=== PATIENT | female | born 1950 | race African-American/Black ===

== ENCOUNTER 2016-09-11 07:50 | Outpatient (CLI) | payer OTHER ==
[2016-09-11 08:45] LABS: #Basophils 0.1 thou/uL (0.0-0.2); #Eosinphils 0.3 thou/uL (0.0-0.7); #Lymphocytes 1.5 thou/uL (1.20-3.40); #Monocytes 0.5 thou/uL (0.11-0.59); #Neutrophils 3.5 thou/uL (1.40-6.50); %Basophils 1.7 % (0.0-1.0); %Eosinophils 5.7 % (0.0-10.0); %Lymphocytes 25.8 % (21.0-51.0); %Monocytes 7.7 % (0.0-10.0); Hematocrit 40.9 % (36.0-47.0); Mean Platelet Volume 8.2 fL (7.4-10.4); White Blood Cell (WBC) Count 5.8 thou/uL (4.8-10.8)
[2016-09-11 08:55] LABS: Bilirubin Negative (Negative); Blood, Urine Negative (Negative); Glucose, Urine (Dipstick) Negative (Negative); Ketone, Urine Negative (Negative); Nitrite Negative (Negative); Protein, Urine (Dipstick) Negative (Neg-Trace); Urobilinogen 0.2 mg/dL (0.2-1.0)
[2016-09-11 08:56] LABS: Hemoglobin A1c 5.2 % (4.0-6.0)
[2016-09-11 09:01] LABS: ALT (SGPT) 13 U/L (0-55); AST (SGOT) 20 U/L (5-34); Alkaline Phosphatase 76 U/L (40-150); Anion Gap 13 mmol/L (10-20); BUN (Urea Nitrogen) 43 mg/dL (9.8-20.1); Bilirubin, Total 0.3 mg/dL (0.2-1.2); Calc. Creatinine Clearance 0 mL/min (70-130); Calcium 9.6 mg/dL (7.8-10.44); Carbon Dioxide 26 mmol/L (23-31); Chloride 105 mmol/L (98-107); Estimated GFR-MDRD 40; Globulin 3.5 g/dL (2.4-3.5); LDL Cholesterol, Calculated 197 mg/dL; Protein, Total 7.7 g/dL (5.8-8.1)
== END 2016-09-11 07:51 ==
LOC: NAVSJIPCSP 07:50
PROVIDERS: ATTEND Internal Medicine
DX: E78.2 Mixed hyperlipidemia (principal); I65.22 Occlusion and stenosis of left carotid artery; I10 Essential (primary) hypertension; Z96.651 Presence of right artificial knee joint
CPT/HCPCS: 80053; 80061; 81003; 83036; 84443; 85025

== ENCOUNTER 2017-03-11 08:24 | Outpatient (CLI) | payer MEDICARE ==
[2017-03-11 12:32] LABS: #Eosinphils 0.2 thou/uL (0.0-0.7); #Lymphocytes 1.2 thou/uL (1.20-3.40); #Monocytes 0.3 thou/uL (0.11-0.59); #Neutrophils 3.6 thou/uL (1.40-6.50); %Basophils 0.6 % (0.0-1.0); %Eosinophils 4.5 % (0.0-10.0); %Lymphocytes 22.6 % (21.0-51.0); %Monocytes 5.4 % (0.0-10.0); %Neutrophils 66.9 % (42.0-75.0); Hemoglobin 10.6 g/dL (12.0-16.0); Mean Corpuscular HGB CONC 30.4 g/dL (32.0-36.0); Mean Corpuscular Volume 85.6 fl (81.0-99.0); Mean Platelet Volume 6.6 fL (7.4-10.4); Platelet Count 188 thou/uL (130-400); RBC Distribution Width 14.1 % (11.5-14.5); Red Blood Cell (RBC) Count 4.08 mill/uL (4.20-5.40); White Blood Cell (WBC) Count 5.3 thou/uL (4.8-10.8)
[2017-03-11 12:55] LABS: ALT (SGPT) 13 U/L (8-55); AST (SGOT) 20 U/L (5-34); Albumin 4.1 g/dL (3.4-4.8); Alkaline Phosphatase 66 U/L (40-150); Anion Gap 17 mmol/L (10-20); BUN (Urea Nitrogen) 29 mg/dL (9.8-20.1); Bilirubin, Total 0.2 mg/dL (0.2-1.2); Calc. Creatinine Clearance 0 mL/min (70-130); Calcium 9.1 mg/dL (7.8-10.44); Carbon Dioxide 26 mmol/L (23-31); Cardiac Risk 4.1 (Less than 4.5); Chloride 103 mmol/L (98-107); Cholesterol 190 mg/dl (< 200 Desired); Estimated GFR-MDRD 43; Globulin 2.5 g/dL (2.4-3.5); Glucose 128 mg/dL (80-115); HDL Cholesterol 46 mg/dL (>60 Neg Risk); LDL Cholesterol, Calculated 130 mg/dL; Potassium 3.8 mmol/L (3.5-5.1); Protein, Total 6.6 g/dL (6.0-8.3); Sodium 142 mmol/L (136-145); Triglycerides 68 mg/dL (Less than 150)
== END 2017-03-11 08:25 ==
LOC: NAVSJIPCSP 08:24
PROVIDERS: ATTEND Internal Medicine
DX: I10 Essential (primary) hypertension (principal); N28.9 Disorder of kidney and ureter, unspecified
CPT/HCPCS: 36415; 80053; 80061; 85025

== ENCOUNTER 2018-01-24 10:07 | Emergency (ER) | payer MEDICARE ==
[2018-01-24] MEDS ORDERED: Sodium Chloride 0.9% 1,000 ML ONE (10:55)
[2018-01-24] MEDS ORDERED: Ketorolac Tromethamine 30 MG/ML VIAL ONE (10:55)
[2018-01-24 11:15] LABS: ALT (SGPT) 15 U/L (8-55); AST (SGOT) 19 U/L (5-34); Alkaline Phosphatase 64 U/L (40-150); Anion Gap 16 mmol/L (10-20); BUN (Urea Nitrogen) 37 mg/dL (9.8-20.1); Bilirubin, Total 0.2 mg/dL (0.2-1.2); CK (CPK) 131 U/L (29-168); Calc. Creatinine Clearance 0 mL/min (70-130); Calcium 9.3 mg/dL (7.8-10.44); Carbon Dioxide 26 mmol/L (23-31); Chloride 101 mmol/L (98-107); Estimated GFR-MDRD 42; Globulin 3.1 g/dL (2.4-3.5); Glucose 108 mg/dL (80-115); Potassium 4.2 mmol/L (3.5-5.1); Protein, Total 7.1 g/dL (6.0-8.3); Sodium 139 mmol/L (136-145)
[2018-01-24 11:23] LABS: CKMB 2.5 ng/mL (0-6.6); Troponin I Less than 0.010 ng/mL (< 0.028)
[2018-01-24 11:32] LABS: Eosinophils 2 % (0-10); Lymphocytes 58 % (21-51); MDiff Complete? YES; Monocytes 5 % (0-10); Neutrophil 35 % (42-75); PLT Morphology Comment Appears Adequate
[2018-01-24 11:35] LABS: White Blood Cell (WBC) Count 13.3 thou/uL (4.8-10.8)
[2018-01-24 11:36] LABS: Hemoglobin 16.1 g/dL (12.0-16.0); Manual Diff?? YES; Mean Corpuscular HGB CONC 32.4 g/dL (32.0-36.0); Mean Corpuscular Hemoglobin 29.2 pg (27.0-31.0); Mean Corpuscular Volume 90.2 fL (81.0-99.0); Mean Platelet Volume 9.7 fL (7.4-10.4); Platelet Count 230 thou/uL (130-400); RBC Distribution Width 13.6 % (11.5-14.5); Red Blood Cell (RBC) Count 5.52 mill/uL (4.20-5.40)
--- NOTE | 2018-01-24 12:07 | RAD ---
TWO VIEWS CHEST: HISTORY: Dizziness, shortness of breath. FINDINGS: PA and lateral views of the chest were obtained. The lungs are well aerated. No evidence of active intrathoracic disease is seen. No evidence of effusions, pneumonia, or pneumothorax seen. IMPRESSION: Normal 2 views chest. POS: [facility]
[2018-01-24] MEDS ORDERED: Cyclobenzaprine 10 MG TAB ONE (12:26)
== END 2018-01-24 13:20 | disposition home or self-care (01) ==
LOC: NAV ERS 10:07
DX: M79.1 Myalgia (principal); I12.9 Hypertensive chronic kidney disease with stage 1 through stage 4 chronic kidney disease, or unspecified chronic kidney disease; N18.9 Chronic kidney disease, unspecified; E78.5 Hyperlipidemia, unspecified; Z79.899 Other long term (current) drug therapy
CPT/HCPCS: 71046; 80053; 82550; 82553; 84484; 85025; 93005; 96361; 96374; J1885; J7050

== ENCOUNTER 2018-04-18 08:38 | Outpatient (CLI) | payer MEDICARE ==
--- NOTE | 2018-04-18 13:56 | CT ---
CT NECK NONCONTRAST: DATE: 04/18/18. HISTORY: A 67-year-old female with carotid stenosis. TECHNIQUE: This was intended to be a CT angiogram of the neck with contrast. According to the senior cytotechnologist's note from [facility], the patient was given 90 cc of Visipaque 320, 1.2 mL per second due to small vein access of 22 gauge and right antecubital. Checked patient for infiltrate during an d post scan. No infiltrate, no swelling, used Smart Prep at prescribed area on protocol. FINDINGS: Unfortunately, there is no IV contrast material visible in any of the arteries or veins. Therefore, this is being interpreted as a noncontrast CT of the neck, which would be a limited study. No calcif ied plaque is visualized in the internal carotid arteries (including carotid bulbs), or common caroti d arteries. Thyroid gland is not enlarged. Within the limitations of a noncontrast scan, no gross p athology is identified involving the collections specialist, submandibular, parotid, parapharyngeal, retropharyng eal, or posterior cervical, spaces. No significant cervical lymphadenopathy by size criteria. There is multilevel mild and moderate degenerative disk disease in the cervical spine. IMPRESSION: 1. This study is nondiagnostic as a CT angiogram. The patient should not be charged for a CTA of th e neck. Since 90 mL of IV contrast was injected but there is no IV contrast media visible within any vascular lumen on this CT, it is likely that there was infiltration of that injected material into t he antecubital soft tissues, despite the technologist's note above. 2. Mild to moderate cervical spondylosis. 3. No gross abnormality of CT neck soft tissues identified, within the limitations of a noncontrast scan. POS: [facility]
[2018-04-18] MEDS ORDERED: Iodixanol 320 MG/ML (100 ML BOT) ONE (17:06)
== END 2018-04-18 08:39 | disposition home or self-care (01) ==
LOC: NAV CT 08:38
PROVIDERS: ATTEND Internal Medicine
DX: I65.22 Occlusion and stenosis of left carotid artery (principal); M47.892 Other spondylosis, cervical region
CPT/HCPCS: 70498; Q9967

== ENCOUNTER 2018-07-12 10:15 | Emergency (ER) | payer MEDICARE ==
[2018-07-12 10:58] LABS: Bilirubin Negative (Negative); Blood, Urine Negative (Negative); Clarity Clear (Clear); Glucose, Urine (Dipstick) Negative (Negative); Leukocyte Negative (Negative); Nitrite Negative (Negative); Protein, Urine (Dipstick) Negative (Neg-Trace); Urobilinogen 0.2 mg/dL (0.2-1.0)
[2018-07-12 11:09] LABS: CKMB 1.9 ng/mL (0-6.6); Troponin I 0.018 ng/mL (< 0.028)
[2018-07-12 11:10] LABS: ALT (SGPT) 13 U/L (8-55); AST (SGOT) 24 U/L (5-34); Albumin 4.3 g/dL (3.4-4.8); Alkaline Phosphatase 61 U/L (40-150); Anion Gap 16 mmol/L (10-20); BUN (Urea Nitrogen) 29 mg/dL (9.8-20.1); Bilirubin, Total 0.2 mg/dL (0.2-1.2); Calc. Creatinine Clearance 0 mL/min (70-130); Carbon Dioxide 23 mmol/L (23-31); Chloride 107 mmol/L (98-107); Estimated GFR-MDRD 47; Globulin 3.3 g/dL (2.4-3.5); Glucose 101 mg/dL (80-115); Potassium 4.5 mmol/L (3.5-5.1); Protein, Total 7.6 g/dL (6.0-8.3); Sodium 141 mmol/L (136-145)
[2018-07-12 11:12] LABS: Hemoglobin 11.5 g/dL (12.0-16.0); MDiff Complete? YES; Mean Corpuscular HGB CONC 30.4 g/dL (32.0-36.0); Mean Corpuscular Hemoglobin 26.2 pg (27.0-31.0); Mean Corpuscular Volume 86.1 fL (78.0-98.0); Mean Platelet Volume 7.1 fL (7.4-10.4); Platelet Count 196 thou/uL (130-400); RBC Distribution Width 13.7 % (11.5-14.5); Red Blood Cell (RBC) Count 4.38 mill/uL (4.20-5.40); White Blood Cell (WBC) Count 5.3 thou/uL (4.8-10.8)
--- NOTE | 2018-07-12 11:12 | RAD ---
PA AND LATERAL CHEST: History: Dyspnea. Comparison: 12-25-17 FINDINGS: The heart size is normal. The lungs are expanded without lobar consolidation, pneumothoraces or pleur al effusions. There are mild degenerative changes of the spine. IMPRESSION: No radiographic evidence of acute cardiopulmonary process. POS: [facility]
[2018-07-12 11:13] LABS: Eosinophils 4 % (0-10); Lymphocytes 25 % (21-51); Monocytes 6 % (0-10); Neutrophil 65 % (42-75)
[2018-07-12] MEDS ORDERED: Ketorolac Tromethamine 30 MG/ML VIAL ONE (11:29)
[2018-07-12] MEDS ORDERED: Sodium Chloride 0.9% 1,000 ML ONE (11:29)
--- NOTE | 2018-07-12 11:39 | RAD ---
THREE VIEWS LUMBOSACRAL SPINE: Comparison: None. History: Low back pain. FINDINGS: Three views of the lumbosacral spine shows grade I anterolisthesis of L4 on L5. Small osteophytes are seen throughout the lumbar spine. Moderate posterior facet arthrosis is seen in the lower lumbosacra l spine. There is no evidence of acute fracture or subluxation. IMPRESSION: Moderate degenerative changes of the lumbar spine without acute osseous abnormality. POS: [facility]
== END 2018-07-12 12:24 | disposition home or self-care (01) ==
LOC: NAV ERS 10:15
DX: M54.5 Low back pain (principal); R06.00 Dyspnea, unspecified; E78.5 Hyperlipidemia, unspecified; E11.9 Type 2 diabetes mellitus without complications; M19.90 Unspecified osteoarthritis, unspecified site; I10 Essential (primary) hypertension; Z79.899 Other long term (current) drug therapy; Z79.891 Long term (current) use of opiate analgesic
CPT/HCPCS: 71046; 72100; 80053; 81003; 82553; 83605; 83880; 84484; 85025; 93005; 94760; 96361; 96374; J1885; J7050

== ENCOUNTER 2019-03-08 08:51 | Emergency (ER) | payer MEDICARE ==
[2019-03-08] MEDS ORDERED: Acetaminophen 500 MG TAB ONE (09:18)
--- NOTE | 2019-03-08 09:35 | RAD ---
XR Chest 1 View Portable History: Cough Comparison: Radiograph September 12, 2016 Findings: Lungs are clear. No pneumothorax. No effusion. Heart size is mildly enlarged. Mild degenerative disease both acromioclavicular joints. Impression: Mild cardiomegaly, unchanged. No acute intrathoracic abnormality.
[2019-03-08 11:16] LABS: ALT (SGPT) 16 U/L (8-55); AST (SGOT) 23 U/L (5-34); Albumin 4.1 g/dL (3.4-4.8); Alkaline Phosphatase 60 U/L (40-150); Anion Gap 16 mmol/L (10-20); BUN (Urea Nitrogen) 38 mg/dL (9.8-20.1); Bilirubin, Total 0.2 mg/dL (0.2-1.2); Calc. Creatinine Clearance 0 mL/min (70-130); Calcium 9.8 mg/dL (7.8-10.44); Carbon Dioxide 25 mmol/L (23-31); Chloride 106 mmol/L (98-107); Estimated GFR-MDRD 55; Globulin 2.9 g/dL (2.4-3.5); Glucose 100 mg/dL (80-115); Potassium 4.6 mmol/L (3.5-5.1); Sodium 142 mmol/L (136-145)
[2019-03-08 11:18] LABS: %Basophils 3.4 % (0.0-1.0); %Eosinophils 3.1 % (0.0-10.0); %Monocytes 7.2 % (0.0-10.0); Hemoglobin 11.5 g/dL (12.0-16.0); Mean Corpuscular HGB CONC 30.3 g/dL (32.0-36.0); Mean Corpuscular Hemoglobin 25.9 pg (27.0-31.0); Mean Corpuscular Volume 85.4 fL (78.0-98.0); Mean Platelet Volume 7.5 fL (7.4-10.4); Platelet Count 182 thou/uL (130-400); RBC Distribution Width 13.8 % (11.5-14.5); Red Blood Cell (RBC) Count 4.44 mill/uL (4.20-5.40); White Blood Cell (WBC) Count 4.9 thou/uL (4.8-10.8)
--- NOTE | 2019-03-08 12:22 | CT ---
NONCONTRAST HEAD CT: HISTORY: Frequent headaches since September. COMPARISON: None. FINDINGS: No parenchymal hemorrhage. No extraaxial hematoma. No midline shift. Basilar cisterns are patent. Brain volume, age appropriate. Cortical winkler-white matter differentiation is preserved. No evidence of hydrocephalus. Calvarium is intact. Adequate aeration of the sinuses and mastoid air cells. There is cavernous car otid atherosclerosis. IMPRESSION: No acute intracranial process. POS: [facility]
== END 2019-03-08 12:02 | disposition home or self-care (01) ==
LOC: NAV ERS 08:51
DX: R51 Headache (principal); I10 Essential (primary) hypertension; J45.901 Unspecified asthma with (acute) exacerbation; E78.5 Hyperlipidemia, unspecified; Z79.899 Other long term (current) drug therapy
CPT/HCPCS: 70450; 71045; 80053; 83880; 84484; 85025; 85379; 93005; 94640; J7620

== ENCOUNTER 2019-03-27 09:14 | Outpatient (CLI) | payer MEDICARE ==
--- NOTE | 2019-03-27 10:11 | ULT ---
BILATERAL CAROTID DUPLEX ULTRASOUND: DATE: 03/27/19 HISTORY: Bilateral carotid bruits. TECHNIQUE: Watkins scale ultrasound with color flow and spectral Doppler imaging of the extracranial carotid artery systems performed bilaterally. FINDINGS: There is plaque formation on both sides. The peak systolic velocity in the right ICA measures 69 cm/second with an end-diastolic velocity of 2 0 cm/second and a systolic ratio of 0.87. The peak systolic velocity in the left ICA measures 91 cm/second with an end-diastolic velocity of 28 cm/second and a systolic ratio of 0.94. Flow in both vertebral arteries remains antegrade. IMPRESSION: No evidence of hemodynamically significant stenosis. POS: [facility]
== END 2019-03-27 09:15 | disposition home or self-care (01) ==
LOC: NAV ULT 09:14
PROVIDERS: ATTEND Nurse Practitioner Adult Health
DX: R09.89 Other specified symptoms and signs involving the circulatory and respiratory systems (principal)
CPT/HCPCS: 93880

== ENCOUNTER 2019-11-12 11:22 | Emergency (ER) | payer MEDICARE ==
[2019-11-12] MEDS ORDERED: Acetaminophen 500 MG TAB ONE (12:06)
== END 2019-11-12 13:05 | disposition home or self-care (01) ==
LOC: NAV ERS 11:22
DX: G43.909 Migraine, unspecified, not intractable, without status migrainosus (principal); E78.5 Hyperlipidemia, unspecified; E78.00 Pure hypercholesterolemia, unspecified; M19.90 Unspecified osteoarthritis, unspecified site; I11.9 Hypertensive heart disease without heart failure; E11.9 Type 2 diabetes mellitus without complications; Z79.899 Other long term (current) drug therapy
CPT/HCPCS: 93005; 94760

== ENCOUNTER 2021-01-21 14:35 | Outpatient (CLI) | payer MEDICARE | END 2021-01-21 14:36 | disposition home or self-care (01) | LOC: NAV RAD 14:35 | PROVIDERS: ATTEND Internal Medicine | DX: I10 Essential (primary) hypertension (principal) | CPT/HCPCS: 71046 ==

== ENCOUNTER 2024-07-23 10:41 | Emergency (ER) | payer MEDICARE ==
[~2024-07-23 10:41] MED LIST: Iopamidol 370 76% 100 ML VIAL ONE
[2024-07-23 11:06] LABS: #Eosinophils 0.3 thou/uL (0.0-0.7); #Lymphocytes 2.2 thou/uL (1.20-3.40); #Monocytes 0.5 thou/uL (0.11-0.59); #Neutrophils 3.4 thou/uL (1.40-6.50); %Basophils 0.6 % (0.0-1.0); %Eosinophils 4.2 % (0.0-10.0); %Monocytes 7.4 % (0.0-10.0); %Neutrophils 53.8 % (42.0-75.0); Hematocrit 42.5 % (36.0-47.0); Hemoglobin 12.8 g/dL (12.0-16.0); Mean Corpuscular HGB CONC 30.2 g/dL (32.0-36.0); Mean Corpuscular Hemoglobin 26.9 pg (27.0-31.0); Mean Corpuscular Volume 88.9 fl (78.0-98.0); Mean Platelet Volume 7.6 fL (7.4-10.4); Platelet Count 191 10x3/uL (130-400); RBC Distribution Width 13.3 % (11.5-14.5); Red Blood Cell (RBC) Count 4.77 mill/uL (4.20-5.40); White Blood Cell (WBC) Count 6.3 10x3/uL (4.8-10.8)
[2024-07-23 11:15] LABS: INR-International Normal Ratio 1.1; Prothrombin Time 13.9 sec (12.0-14.7)
[2024-07-23 11:16] LABS: PTT 23.8 sec (22.9-36.1)
[2024-07-23 11:24] LABS: ALT (SGPT) 24 U/L (8-55); AST (SGOT) 24 U/L (5-34); Albumin 4.2 g/dL (3.4-4.8); Alkaline Phosphatase 68 U/L (40-110); Anion Gap 25 mmol/L (10-20); BUN (Urea Nitrogen) 28 mg/dL (9.8-20.1); Bilirubin, Total 0.3 mg/dL (0.2-1.2); Calc. Creatinine Clearance 0 mL/min (70-130); Calcium 9.4 mg/dL (7.8-10.44); Carbon Dioxide 14 mmol/L (23-31); Chloride 106 mmol/L (98-107); Estimated GFR 33; Globulin 3.4 g/dL (2.4-3.5); Glucose 127 mg/dL (83-110); Potassium 4.2 mmol/L (3.5-5.1); Protein, Total 7.6 g/dL (5.8-8.1); Sodium 141 mmol/L (136-145)
[2024-07-23 11:25] LABS: Troponin I 0.011 ng/mL (< 0.028)
[2024-07-23] MEDS ORDERED: Aspirin 325 MG TAB ONE (12:13)
[2024-07-23 12:23] LABS: Bilirubin Negative (Negative); Blood, Urine Negative (Negative); Clarity Clear (Clear); Glucose, Urine (Dipstick) Negative (Negative); Ketone, Urine Negative (Negative); Leukocyte Negative (Negative); Nitrite Negative (Negative); Protein, Urine (Dipstick) Trace mg/dL (Neg-Trace); Urobilinogen 0.2 mg/dL (Less than 2)
[2024-07-23 12:31] LABS: Amphetamine Not Detected (NotDetected); Barbiturates Screen Not Detected (NotDetected); Benzodiazepine Screen Not Detected (NotDetected); Cocaine Metabolite Screen Not Detected (NotDetected); Methadone Not Detected (NotDetected); Methamphetamine Not Detected (NotDetected); Opiate Screen Not Detected (NotDetected); Oxycodone Screen Not Detected (NotDetected); Phencyclidine (PCP) Not Detected (NotDetected); THC/Cannabinoid Screen Not Detected (NotDetected); Tricyclic Screen Not Detected (NotDetected)
[2024-07-23 12:40] LABS: CAUTI Indications for Culture Alt mental st,lethar; Squamous Epithelial 0-3 HPF (0-3); WBC/HPF None Seen HPF (0-3)
[2024-07-23 12:41] LABS: Urine Culture Reflex No No
[2024-07-23] MEDS ORDERED: Acetaminophen 500 MG TAB ONE (13:38)
== END 2024-07-23 14:24 | disposition short-term general hospital (02) ==
LOC: NAV ERS 10:41
DX: R56.9 Unspecified convulsions (principal); E78.00 Pure hypercholesterolemia, unspecified; I10 Essential (primary) hypertension; E11.9 Type 2 diabetes mellitus without complications; Z79.899 Other long term (current) drug therapy
CPT/HCPCS: 70450; 70496; 70498; 71045; 80053; 80306; 81001; 82962; 84484; 85025; 85610; 85730; 93005; 94760; Q9967; 36416